=== PATIENT | male | born 1950 | race Hispanic/Latino ===

== ENCOUNTER 2019-07-04 09:06 | Emergency (ER) | payer OTHER ==
[~2019-07-04 09:06] MED LIST: ACET-66 PO; AMLO10TA7 PO; ATOR40TA71 PO; FINA5TAB41 PO; GLIP5TAB11 PO; HYDROPHILIC OINTMENT TP; LISI40TA4 PO; METF-444 PO; PARO40TA72 PO; SILDENAFIL PO; TAMS0.4C32 PO; TRAZ-185 PO; [UNRECOGNIZED DRUG - OTHER] PO
[2019-07-04 09:26] LABS: APPEARANCE,URINE Clear (CLEAR); BILIRUBIN,URINE Negative (NEGATIVE); COLOR,URINE Yellow (YELLOW); GLUCOSE, URINE (UA) Negative (NEGATIVE); KETONES,URINE Trace mg/dL (NEGATIVE); LEUKOCYTE ESTERASE ,URINE Trace (NEGATIVE); NITRATE,URINE Negative (NEGATIVE); OCCULT BLOOD,URINE Large (NEGATIVE); PH,URINE 5.5 (5.0-8.0); PROTEIN,URINE POS 1+ mg/dL (NEGATIVE)
[2019-07-04 09:48] LABS: BACTERIA,URINE Rare /HPF (None Seen); RBC,URINE 26-50 /HPF (0-1); SQUAMOUS EPITHELIAL CELL,UR Rare /HPF (0-2); WBC,URINE 0-1 /HPF (0-1)
[2019-07-04] MEDS ORDERED: MORPHINE SULFATE 2 MG/ML 1ML SYG ONE (10:12)
[2019-07-04 10:43] LABS: BASOPHILS % (AUTO) 0.4 % (0.0-5.0); EOSINOPHILS % (AUTO) 2.4 % (0.0-8.0); HEMATOCRIT 39.8 % (42-54); LYMPHOCYTES % (AUTO) 14.3 % (21.0-51.0); MEAN CORPUSCULAR HEMOGLOBIN 30.6 pg (27.0-33.0); MEAN CORPUSCULAR HGB CONC 34.6 g/dL (32.0-36.0); MEAN CORPUSCULAR VOLUME 88.6 fL (79-99); MONOCYTES % (AUTO) 6.7 % (3.0-13.0); NEUTROPHILS % (AUTO) 76.2 % (40.0-77.0); NUCLEATED RED BLOOD CELLS 0.1 % (0.0-0.19); PLATELET COUNT (AUTO) 163 K/uL (130-400); RED BLOOD CELL COUNT(AUTO) 4.49 MIL/uL (4.50-6.20); RED CELL DISTRIBUTION WIDTH 14.4 % (11.0-15.5); WHITE BLOOD COUNT (AUTO) 9.6 K/uL (4.8-10.8)
[2019-07-04 11:01] LABS: CREATININE 1.5 mg/dL (0.5-1.5); POTASSIUM 4.1 mmol/L (3.5-5.1)
[2019-07-04 11:03] LABS: INR 0.95 (0.85-1.15); PARTIAL THROMBOPLASTIN TIME 26.3 SEC (26.3-35.5)
[2019-07-04 11:06] LABS: ALBUMIN 3.9 g/dL (3.5-5.0); BILIRUBIN,DIRECT 0.1 mg/dL (0.0-0.3); BILIRUBIN,TOTAL 0.5 mg/dL (0.2-1.0); TOTAL PROTEIN, SERUM 7.4 g/dL (6.0-8.3)
[2019-07-04] MEDS ORDERED: TAMSULOSIN HCL 0.4 MG CAP.ER.24H ONE (11:11)
[2019-07-04] MEDS ORDERED: SODIUM CHLORIDE 0.9% 500ML 500 ML IV ONE (11:11)
[2019-07-04] MEDS ORDERED: KETOROLAC TROMETHAMINE 15MG/ML ONE (12:23)
[2019-07-04] MEDS ORDERED: HYDROCODONE/ACETAMINOPHEN 5/325 MG TAB ONE (12:23)
== END 2019-07-04 14:19 | disposition home or self-care (01) ==
LOC: EDH 09:06
DX: N20.1 Calculus of ureter (principal); E11.9 Type 2 diabetes mellitus without complications; I10 Essential (primary) hypertension
CPT/HCPCS: 36415; 74176; 80048; 80076; 81001; 85025; 85610; 85730; 96374; 96375; 99285; J1885; J7040

== ENCOUNTER 2023-01-21 19:23 | Emergency (ER) | payer OTHER ==
[~2023-01-21] VITALS: Ht 182.9 cm; Wt 108.9 kg
[~2023-01-21 19:23] MED LIST changes: +AMLO-258 PO; -AMLO10TA7 PO; -LISI40TA4 PO; +LISI40TA9 PO
[2023-01-21 19:25] VITALS: BP 169/88
[2023-01-21] MEDS ORDERED: IBUP-1493 PO (21:13)
== END 2023-01-21 21:37 | disposition home or self-care (01) ==
LOC: EDH 19:23
DX: S16.1XXA Strain of muscle, fascia and tendon at neck level, initial encounter (principal); E11.9 Type 2 diabetes mellitus without complications; E78.00 Pure hypercholesterolemia, unspecified; I10 Essential (primary) hypertension; Z79.84 Long term (current) use of oral hypoglycemic drugs; Z79.899 Other long term (current) drug therapy; V89.2XXA Person injured in unspecified motor-vehicle accident, traffic, initial encounter; Y93.89 Activity, other specified; Y92.89 Other specified places as the place of occurrence of the external cause; Y99.8 Other external cause status
CPT/HCPCS: 72125

== ENCOUNTER 2023-11-25 12:04 | Emergency (ER) | payer OTHER ==
[~2023-11-25] VITALS: Ht 185.4 cm; Wt 99.8 kg
[~2023-11-25 12:04] MED LIST changes: -GLIP5TAB11 PO; +GLIP5TAB15 PO; +IBUP-1493 PO
[2023-11-25 14:51] LABS: RAPID GROUP A STREP negative (NEGATIVE)
[2023-11-25 15:11] LABS: INFLUENZA TYPE A NEGATIVE FOR TYPE A (NEG); INFLUENZA TYPE B NEGATIVE FOR TYPE B (NEG)
[2023-11-25 15:19] VITALS: BP 148/88; PULSE 67; RESP 18; O2SAT 98
[2023-11-25 15:37] LABS: SARS-CoV-2, RNA, NAAT NEGATIVE SARS CoV-2 (NEGATIVE)
[2023-11-25] MEDS: KETOROLAC 30MG VIAL (30MG/ML) IM ONE (15:45)
[2023-11-25] MEDS: PREDNISONE 20 MG TABLET PO ONE (15:45)
[2023-11-25] MEDS: IBUPROFEN 600 MG TABLET PO ONE (15:45)
[2023-11-25] MEDS ORDERED: BROM118S48 PO (16:15)
[2023-11-25] MEDS ORDERED: PRED20TA3 PO (16:15)
== END 2023-11-25 16:19 | disposition home or self-care (01) ==
LOC: EDH 12:04
DX: J06.9 Acute upper respiratory infection, unspecified (principal); J02.9 Acute pharyngitis, unspecified; E11.9 Type 2 diabetes mellitus without complications; E78.00 Pure hypercholesterolemia, unspecified; I10 Essential (primary) hypertension; Z79.1 Long term (current) use of non-steroidal anti-inflammatories (NSAID); Z79.84 Long term (current) use of oral hypoglycemic drugs; Z79.899 Other long term (current) drug therapy; Z20.822 Contact with and (suspected) exposure to COVID-19
CPT/HCPCS: 99284; 71045; 87635; 87880; 87804 ×2; 96372; J1885

== ENCOUNTER 2024-02-13 12:58 | Emergency (ER) | payer OTHER ==
[~2024-02-13] VITALS: Ht 185.4 cm; Wt 102.1 kg
[~2024-02-13 12:58] MED LIST changes: +BROM118S48 PO; +PRED20TA3 PO
[2024-02-13] MEDS ORDERED: TRAM100T40 PO (13:15)
[2024-02-13] MEDS: KETOROLAC 60 MG VIAL (30MG/ML) IM ONE (13:18)
[2024-02-13 13:30] VITALS: BP 164/86; PULSE 87; RESP 20; O2SAT 99
== END 2024-02-13 13:35 | disposition home or self-care (01) ==
LOC: EDH 12:58
DX: K08.89 Other specified disorders of teeth and supporting structures (principal); E11.9 Type 2 diabetes mellitus without complications; I10 Essential (primary) hypertension; Z79.899 Other long term (current) drug therapy; Z79.84 Long term (current) use of oral hypoglycemic drugs; Z98.890 Other specified postprocedural states
CPT/HCPCS: 99283; 96372; J1885